=== PATIENT | female | born 1990 | race Caucasian/White ===

== ENCOUNTER 2019-04-02 03:50 | Emergency (ER) | payer SELFPAY ==
[~2019-04-02] VITALS: Ht 172.7 cm; Wt 74.8 kg
[2019-04-02 03:50] VITALS: BP 145/58
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
--- NOTE | 2019-04-02 03:55 | NUR ---
SEEN AND EXAMINED BY BIRD.
[2019-04-02 04:07] VITALS: BP 145/58
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
== END 2019-04-02 04:07 ==
LOC: MED 03:50
DX: F10.120 Alcohol abuse with intoxication, uncomplicated (principal); Z02.89 Encounter for other administrative examinations; Y90.9 Presence of alcohol in blood, level not specified
CPT/HCPCS: 99283